=== PATIENT | male | born 1985 | race Caucasian/White ===

== ENCOUNTER 2017-11-14 23:57 | Observation (INO) | payer OTHER ==
[~2017-11-14] VITALS: Ht 180.3 cm; Wt 107.0 kg
[~2017-11-14 23:57] MED LIST: ALBU6.7H INH; ALBUS PO; CYCL5TAB PO; IBUP1TAB7 PO; IPRAAER INH; MONT5CHW2 CHEW; PRED20 PO; TYLETAB34 PO; VENTAER INH; ZOFR4TAB3 SL
[2017-11-15 00:06] VITALS: BP 145/80; PULSE 101; RESP 20; TEMP 98.5; O2SAT 97
[2017-11-15] MEDS ORDERED: MONT5CHW2 CHEW (00:17)
[2017-11-15] MEDS ORDERED: ALBU6.7H INH (00:17)
[2017-11-15] MEDS ORDERED: ALBU0.08 NEB (00:17)
[2017-11-15] MEDS ORDERED: IPRAAER INH (00:17)
[2017-11-15] MEDS ORDERED: SYMB160A INH (00:17)
[2017-11-15] MEDS ORDERED: OMEP20TA93 PO (00:17)
[2017-11-15] MEDS ORDERED: LACTULOSE SYRUP 20 GM/30 ML CUP PO PRN (01:00)
[2017-11-15] MEDS ORDERED: NALOXONE HCL 0.4 MG/ML AMP IV PUSH PRN (01:00)
[2017-11-15] MEDS ORDERED: SENNOSIDES 8.6 MG TAB PO PRN (01:00)
[2017-11-15] MEDS ORDERED: ONDANSETRON HCL 4 MG/2 ML VIAL IVP PRN (01:00)
[2017-11-15] MEDS ORDERED: SODIUM CHLORIDE 0.9% FLUSH 10 ML FLUSH IV FLUSH PRN (01:00)
[2017-11-15] MEDS ORDERED: MAGNESIUM HYDROXIDE SUSP 30 ML CUP PO PRN (01:00)
[2017-11-15] MEDS ORDERED: ACETAMINOPHEN 325 MG TAB PO PRN (01:00)
[2017-11-15] MEDS ORDERED: BISACODYL 10 MG SUPP RECTAL PRN (01:00)
--- NOTE | 2017-11-15 01:06 | HHI.HP ---
HPI Service [facility] Primary Care Physician Unknown Admission Diagnosis Diagnoses: Chief Complaint: Dyspnea Travel History International Travel<30 Days: No Contact w/Intl Traveler <30 Da: No Traveled to Known Affected Are: No History of Present Illness 32 y/o male with a history of anxiety, asthma,PTSD (follows at [facility]) was brought to the ED after having a syncopal episode due to an acute asthma exacerbation. Patient states he was driving his car and became short of breath when he pulled over and used his nebulizer. With his nebulizer he had no relief so he called 911 and got out of his car. He states a bystander came to help him and this is when he lost consciousness and was told that CPR was started. Upon arrival of EMS patient did have a pulse and CPR was stopped. It is unknown if patient actually lost a pulse. Patient states he follows with the [facility] for his asthma that was related to the and he has not had an exacerbation for the last 2-3 years. Prior to his asthma exacerbation denies any chest pain, fevers or chills he denies any recent illness. Patient currently states he feels 100% better, denies any shortness of breath. He states because he has not been able to get an appointment at the [facility] he does have an appointment next week with a local harness brusher. Review of Systems Except as stated in HPI: all other systems reviewed are Neg Past Family Social History Past Medical History Asthma since the Anxiety PTSD Past Surgical History Bronchial thermoplasty x 3 bilateral feet surgeries Reported Medications Reported Meds & Active Scripts Active Reported Albuterol Neb (Albuterol Sulfate) 2.5 Mg/3 Ml Neb 2.5 Mg NEB QID NEB Omeprazole 20 Mg Tab 20 Mg PO DAILY Singulair (Montelukast Sodium) 5 Mg Chew 5 Mg CHEW HS Symbicort Inh (Budesonide/Formoterol Fumarate) 160-4.5 Mcg/Act Aero 2 Puff INH Q12HR Proventil Hfa 6.7 GM Inh (Albuterol Sulfate) 90 Mcg/Act Aer 2 Puff INH Q4-6H PRN Combivent Respimat Inh (Ipratropium-Albuterol Inh) 20-100 Alf/Act Aero 1 Puff INH QID Ventolin Hfa 18 GM Inh (Albuterol Sulfate) 90 Mcg/Act Aer 1 Puff INH Q4H PRN Allergies: Coded Allergies: jose (Verified Allergy, Severe, 11/15/17) No Known Drug Allergies (Verified Allergy, Unknown, 11/15/17) Active Ordered Medications Current Medications Medications (Trade) Dose Ordered Sig/Nusrat Route Start Time Stop Time Status Last Admin (NS Flush) 2 ml UNSCH PRN IV FLUSH 11/15/17 01:00 (NS Flush) 2 ml BID IV FLUSH 11/15/17 09:00 (Tylenol) 650 mg Q4H PRN PO 11/15/17 01:00 (Zofran Inj) 4 mg Q6H PRN IVP 11/15/17 01:00 (Narcan Inj) 0.4 mg UNSCH PRN IV PUSH 11/15/17 01:00 (Bette-Colace) 1 tab BID PO 11/15/17 09:00 (Milk Of Magnesia Liq) 30 ml Q12H PRN PO 11/15/17 01:00 (Senokot) 17.2 mg Q12H PRN PO 11/15/17 01:00 (Dulcolax Supp) 10 mg DAILY PRN RECTAL 11/15/17 01:00 (Lactulose Liq) 30 ml DAILY PRN PO 11/15/17 01:00 (Duoneb Neb) 1 ampule Q4HR NEB NEB 11/15/17 04:00 UNV Family History Mom: Lung cancer (smoker) Social History Tobacco use: Denies Alcohol use: Rarely Illicit drug use: Denies Physical Exam Vital Signs Vital Signs Date Time Temp Pulse Resp B/P (MAP) Pulse Ox O2 Delivery O2 Flow Rate FiO2 11/15/17 00:06 98.5 101 20 145/80 (101) 97 Physical Exam GENERAL: This is a well-nourished, well-developed patient, in no apparent distress. SKIN: No rashes, ecchymoses or lesions. Cool and dry. HEAD: Atraumatic. Normocephalic. No temporal or scalp tenderness. EYES: Pupils equal round and reactive ENT: Nose without bleeding, purulent drainage or septal hematoma. Airway patent. NECK: Trachea midline. No JVD or lymphadenopathy. Supple, nontender, no meningeal signs. CARDIOVASCULAR: Regular rate and rhythm without murmurs, gallops, or rubs. RESPIRATORY: Tight diminished breath sounds with expiratory wheezes. GASTROINTESTINAL: Abdomen soft, non-tender, nondistended. No hepato-splenomegaly , or palpable masses. No guarding. MUSCULOSKELETAL: Extremities without clubbing, cyanosis, or edema. No joint tenderness, effusion, or edema noted. No calf tenderness. NEUROLOGICAL: Awake and alert. Motor and sensory grossly within normal limits. Normal speech. Caprini VTE Risk Assessment Caprini VTE Risk Assessment: No/Low Risk (score <= 1) Caprini Risk Assessment Model Point Value = 1 Point Value = 2 Point Value = 3 Point Value = 5 Age 41-60 Minor surgery BMI > 25 kg/m2 Swollen legs Varicose veins or History of unexplained or recurrent spontaneous Oral contraceptives or hormone replacement Sepsis (< 1 month) Serious lung disease, including pneumonia (< 1 month) Abnormal pulmonary function Acute myocardial infarction Congestive heart failure (< 1 month) History of inflammatory bowel disease Medical patient at bed rest Age 61-74 Arthroscopic surgery Major open surgery (> 45 min) Laparoscopic surgery (> 45 min) Malignancy Confined to bed (> 72 hours) Immobilizing plaster cast Central venous access Age >= 75 History of VTE Family history of VTE Factor V Leiden Prothrombin [id number] Lupus anticoagulant Anticardiolipin antibodies Elevated serum homocysteine Heparin-induced thrombocytopenia Other congenital or acquired thrombophilia Stroke (< 1 month) Elective arthroplasty Hip, pelvis, or leg fracture Acute spinal cord injury (< 1 month) Prophylaxis Regimen Total Risk Factor Score Risk Level Prophylaxis Regimen 0-1 Low Early ambulation 2 Moderate Order ONE of the following: *Sequential Compression Device (SCD) *Heparin 5000 units SQ BID 3-4 Higher Order ONE of the following medications: *Heparin 5000 units SQ TID *Enoxaparin/Lovenox 40 mg SQ daily (WT < 150 kg, CrCl > 30 mL/min) *Enoxaparin/Lovenox 30 mg SQ daily (WT < 150 kg, CrCl > 10-29 mL/min) *Enoxaparin/Lovenox 30 mg SQ BID (WT < 150 kg, CrCl > 30 mL/min) AND/OR *Sequential Compression Device (SCD) 5 or more Highest Order ONE of the following medications: *Heparin 5000 units SQ TID (Preferred with Epidurals) *Enoxaparin/Lovenox 40 mg SQ daily (WT < 150 kg, CrCl > 30 mL/min) *Enoxaparin/Lovenox 30 mg SQ daily (WT < 150 kg, CrCl > 10-29 mL/min) *Enoxaparin/Lovenox 30 mg SQ BID (WT < 150 kg, CrCl > 30 mL/min) AND *Sequential Compression Device (SCD) Assessment and Plan Problem List: (1) Asthma exacerbation ICD Code: J45.901 - Unspecified asthma with (acute) exacerbation Status: Acute Assessment and Plan 32 y/o male with a history of anxiety, asthma,[facility] was brought to the ED after having a syncopal episode due to an acute asthma exacerbation. Asthma exacerbation, acute, severe, with acute respiratory distress and hypoxia ABG showed pH 7.19, PCO2 [address] reviewed and shows 2, 4 mm nodules in the right middle lobe. -Patient was placed on BiPAP at this time, currently weaned to nasal cannula -PT walk test ordered, patient concerned he needs oxygen at home -Solu-Medrol IV -Duo nebs ordered -Continue home Symbicort -Patient will need follow-up with [facility] for lung nodules Syncope, suspect related to hypoxia Head CT reviewed and shows no acute abnormality -PT eval and treat -O2 as needed Leukocytosis, WBCs 17.3 likely reactive, no fevers Chest x-ray reviewed shows no acute cardiopulmonary disease -CBC in a.m. -Hold antibiotics for now Acute kidney injury, likely due to dehydration Creatinine 1.6 unknown baseline -IVF for hydration -BMP in a.m. DVT prophylaxis: SCDs Discussed Condition With patient and ED physician Bela Reese Nov 15, 2017 01:06
[2017-11-15 03:19] VITALS: O2SAT 96
[2017-11-15] MEDS ORDERED: RESP: ALBUTEROL 2.5 MG/IPRATROPIUM 0.5 MG NEB (SCH) NEB (04:00)
[2017-11-15] MEDS ORDERED: PANTOPRAZOLE SOD 20 MG DELAYED RELEASE TAB PO SCH (06:00)
[2017-11-15] MEDS ORDERED: methylPREDNISolone SOD SUCC 40 MG/1 ML VIAL IV PUSH SCH (06:00)
[2017-11-15 06:26] VITALS: BP 132/79; PULSE 98; RESP 20; O2SAT 95
[2017-11-15 08:18] VITALS: BP 128/74
[2017-11-15 09:00] VITALS: BP 122/59; PULSE 76; RESP 16; TEMP 97; O2SAT 93
[2017-11-15] MEDS ORDERED: BUDESONIDE-FORMOTEROL 160/4.5 MCG INHALER INH SCH (09:00)
[2017-11-15] MEDS ORDERED: DOCUSATE SODIUM 50 MG/SENNA 8.6 MG TAB PO SCH (09:00)
[2017-11-15] MEDS ORDERED: SODIUM CHLORIDE 0.9% FLUSH 10 ML FLUSH IV FLUSH SCH (09:00)
[2017-11-15 12:00] VITALS: BP 137/83; PULSE 86; RESP 16; TEMP 97.7; O2SAT 93
[2017-11-15] MEDS ORDERED: PRED20 PO (12:47)
[2017-11-15] MEDS ORDERED: NEBU1MIS (12:47)
--- NOTE | 2017-11-15 12:51 | HHI.DS ---
Discharge Summary Admission Date Nov 15, 2017 at 00:58 Discharge Date: Nov 15, 2017 Admitting Diagnosis (1) Asthma exacerbation ICD Code: J45.901 - Unspecified asthma with (acute) exacerbation Diagnosis: Principal Status: Acute Procedures none Brief History - From Admission 32 y/o male with a history of anxiety, asthma,PTSD (follows at the [facility]) was brought to the ED after having a syncopal episode due to an acute asthma exacerbation. Patient states he was driving his car and became short of breath when he pulled over and used his nebulizer. With his nebulizer he had no relief so he called 911 and got out of his car. He states a bystander came to help him and this is when he lost consciousness and was told that CPR was started. Upon arrival of EMS patient did have a pulse and CPR was stopped. It is unknown if patient actually lost a pulse. Patient states he follows with the [facility] for his asthma that was related to the and he has not had an exacerbation for the last 2-3 years. Prior to his asthma exacerbation denies any chest pain, fevers or chills he denies any recent illness. Patient currently states he feels 100% better, denies any shortness of breath. He states because he has not been able to get an appointment at the [facility] he does have an appointment next week with a local sub master. Hospital Course Mr. Aguiar is a 32-year-old male. He was admitted secondary to a severe asthma exacerbation. He says he tried treatments as an outpatient, but this failed. He had an exacerbation while driving. He started feeling lightheaded and pulled over. He subsequently had a syncopal episode. The syncopal episode is related to the asthma exacerbation and no further workup is needed. With nebulized treatments, scheduled DuoNeb nebs, and steroids the patient has returned to baseline. He feels well today without exacerbation. Medically stable for discharge home today. Pt Condition on Discharge: Stable Discharge Disposition: Discharge Home Discharge Time: <= 30 minutes Discharge Instructions DIET: Follow Instructions for: As Tolerated, No Restrictions Activities you can perform: Regular-No Restrictions Follow up Referrals: PCP Follow-up - 2 Weeks New Medications: Innospire Mini Portable Nebulizer (Innospire Mini Portable Nebulizer) 1 Mis Mis EA .XX DIRECTED for Breathing Treatment, #1 0 Refills Prednisone (Prednisone) 20 Mg Tab 20 MG PO BID for Breathing Treatment, #4 TAB 0 Refills Continued Medications: Albuterol 18 GM Inh (Ventolin Hfa 18 GM Inh) 90 Mcg/Act Aer 1 PUFF INH Q4H PRN for SHORTNESS OF BREATH, #1 INHALER 0 Refills Albuterol 6.7 GM Inh (Proventil Hfa 6.7 GM Inh) 90 Mcg/Act Aer 2 PUFF INH Q4-6H PRN for SHORTNESS OF BREATH, #1 INHALER 0 Refills Albuterol Neb (Albuterol Neb) 2.5 Mg/3 Ml Neb 2.5 MG NEB QID NEB for Breathing Treatment, #60 NEBULE 0 Refills Budesonide-Formoterol Inh (Symbicort Inh) 160-4.5 Mcg/Act Aero 2 PUFF INH Q12HR, #1 INHALER 0 Refills Ipratropium-Albuterol Inh (Combivent Respimat Inh) 20-100 Custodial/Act Aero 1 PUFF INH QID for Asthma Management, #1 INHALER 0 Refills Montelukast (Singulair) 5 Mg Chew 5 MG CHEW HS, #30 TAB 0 Refills Omeprazole (Omeprazole) 20 Mg Tab 20 MG PO DAILY, #30 TAB 0 Refills Seamus Moore MD Nov 15, 2017 12:51
[2017-11-15] MEDS ORDERED: MONTELUKAST SODIUM 5 MG CHEWABLE TAB CHEW SCH (21:00)
== END 2017-11-15 13:55 | disposition home or self-care (01) ==
LOC: NEPE 23:57 → NEDA 11-15 00:58 → NEDH 11-15 05:53 → N03B 11-15 08:50
PROVIDERS: ADMIT Hospitalist; ATTEND Hospitalist
DX: J45.901 Unspecified asthma with (acute) exacerbation (principal); F43.10 Post-traumatic stress disorder, unspecified; R55 Syncope and collapse; F41.9 Anxiety disorder, unspecified; R09.02 Hypoxemia; R06.03 Acute respiratory distress; N17.9 Acute kidney failure, unspecified; E86.0 Dehydration; D72.829 Elevated white blood cell count, unspecified; Z80.1 Family history of malignant neoplasm of trachea, bronchus and lung
CPT/HCPCS: 36600; 70450; 71045; 71250; 74176; 80053; 80307; 82550; 82552; 82805; 83605; 83690; 83880; 84484; 85007; 85027; 85379; 85610; 85730; 87040; 93005; 94640; 94664; 96365; 96374; 96375; 99285; G0378; J2920; J2930; J3475; J7030; J7611